=== PATIENT | male | born 1955 | race Caucasian/White ===

== ENCOUNTER 2025-07-09 14:33 | Emergency (ER) | payer MEDICARE, OTHER ==
[~2025-07-09] VITALS: Ht 177.8 cm; Wt 68.0 kg
[2025-07-09] MEDS ORDERED: KETOROLAC TROMETHAMINE INJ 30 MG/ML VIAL ONE (15:30)
[2025-07-09] MEDS ORDERED: CYCLOBENZAPRINE 10 MG TABLET ONE (15:31)
[2025-07-09] MEDS: KETOROLAC TROMETHAMINE INJ 30 MG/ML VIAL IM ONE (15:35)
[2025-07-09] MEDS: CYCLOBENZAPRINE 10 MG TABLET PO ONE (15:35)
[2025-07-09] MEDS ORDERED: LIDO30AD10 TP (16:41)
[2025-07-09 16:47] VITALS: BP 139/77; TEMP 98.8; O2SAT 99
== END 2025-07-09 16:48 | disposition home or self-care (01) ==
LOC: ER 14:33
DX: S20.212A Contusion of left front wall of thorax, initial encounter (principal); M19.90 Unspecified osteoarthritis, unspecified site; Z95.0 Presence of cardiac pacemaker; W16.92XA Jumping or diving into unspecified water causing other injury, initial encounter; Y93.89 Activity, other specified; Y92.89 Other specified places as the place of occurrence of the external cause; Y99.8 Other external cause status
CPT/HCPCS: 99283; 71045; 96372; 93005; J1885